=== PATIENT | female | born 1985 | race Caucasian/White ===

== ENCOUNTER 2016-12-04 00:40 | Emergency (ER) | payer MEDICAID | END 2016-12-04 02:05 | disposition home or self-care (01) | LOC: D.ER 00:40 | DX: T14.8 Other injury of unspecified body region (principal); S42.024A Nondisplaced fracture of shaft of right clavicle, initial encounter for closed fracture; W19.XXXA Unspecified fall, initial encounter ==

== ENCOUNTER 2018-08-21 02:02 | Emergency (ER) | payer SELFPAY ==
[~2018-08-21] VITALS: Ht 162.6 cm; Wt 49.5 kg
[2018-08-21 02:07] VITALS: Ht 162.6 cm; Wt 49.5 kg
[2018-08-21] MEDS ORDERED: LAMICTAL200 M1 PO ×2 (02:09→03:11)
[2018-08-21 03:12] LABS: HCG URINE NEGATIVE (NEGATIVE)
[2018-08-21 03:14] LABS: COLOR YELLOW (YELLOW)
[2018-08-21 03:15] LABS: APPEARANCE CLOUDY (CLEAR); BILIRUBIN NEGATIVE (NEGATIVE); GLUCOSE NEGATIVE (NEGATIVE); KETONE NEGATIVE (NEGATIVE); NITRITE POSITIVE (NEGATIVE); PROTEIN 1+ mg/dL (NEGATIVE); UROBILINOGEN NORMAL (NORMAL)
[2018-08-21 03:16] LABS: BACTERIA MANY /hpf (NONE SEEN); EPITHELIAL CELLS 0-5 /hpf (0-5); RED CELLS - URINE 0-5 /hpf (0-5); UDS - AMPHET POSITIVE QUAL (NEGATIVE); UDS - BARB NEGATIVE QUAL (NEGATIVE); UDS - BENZO NEGATIVE QUAL (NEGATIVE); UDS - COCAINE NEGATIVE QUAL (NEGATIVE); UDS - OPIATE NEGATIVE QUAL (NEGATIVE); UDS - PCP NEGATIVE QUAL (NEGATIVE); UDS - THC NEGATIVE QUAL (NEGATIVE)
[2018-08-21] MEDS ORDERED: MACROBID100 MG PO (03:27)
[2018-08-21 03:46] VITALS: BP 126/81
== END 2018-08-21 03:46 | disposition home or self-care (01) ==
LOC: D.ER 02:02
PROVIDERS: Family Medicine
DX: G40.909 Epilepsy, unspecified, not intractable, without status epilepticus (principal); F19.10 Other psychoactive substance abuse, uncomplicated; N39.0 Urinary tract infection, site not specified

== ENCOUNTER 2019-04-09 20:33 | Emergency (ER) | payer SELFPAY ==
[~2019-04-09] VITALS: Ht 162.6 cm; Wt 50.0 kg
[~2019-04-09 20:33] MED LIST: LAMICTAL200 M1 PO; MACROBID100 MG PO
[2019-04-09 21:01] VITALS: Ht 162.6 cm; Wt 50.0 kg
[2019-04-09 22:04] LABS: BASOPHILS 0.1 % (0-2); EOSINOPHILS 0.5 % (0-7); HEMATOCRIT 33.3 % (36.0-48.0); HEMOGLOBIN 10.7 g/dL (12-16); IMMATURE GRANULOCYTES 0.8 % (0-5); LYMPHOCYTES 14.4 % (15-50); MCHC 32.1 g/dL (31.0-37.0); MCV 90.2 fL (80.0-100.0); MEAN PLATELET VOLUME 8.6 fL (7.4-10.4); MONOCYTES 4.5 % (2-11); NEUTROPHILS 79.7 % (40-80); PLATELET COUNT 565 10x3/uL (130-400); RBC 3.69 10x6/uL (4.00-5.40); RDW 13.1 % (11.5-14.5); WBC 13.7 10x3/uL (4.8-10.8)
[2019-04-09 22:15] LABS: ALBUMIN 2.7 g/dL (3.4-5.0); ALKALINE PHOSPHATASE 204 U/L (46-116); ALT (SGPT) 27 U/L (10-68); BILIRUBIN - TOTAL 0.21 mg/dL (0.2-1.3); CALC OSMOLALITY 277 mosm/kg (275-300); CALCIUM 9.4 mg/dL (8.5-10.1); CARBON DIOXIDE 33.6 mmol/L (21.0-32.0); CHLORIDE - SERUM 101 mmol/L (98-107); CREATININE - SERUM 0.7 mg/dL (0.6-1.3); GLUCOSE 84 mg/dL (74-106); POTASSIUM - SERUM 3.7 mmol/L (3.5-5.1); PROTEIN - SERUM 7.5 g/dL (6.4-8.2); SODIUM 141 mmol/L (136-145); UREA NITROGEN 7 mg/dL (7-18); eGFR NON AFRICAN AMERICAN > 90 mL/min (90-120)
[2019-04-09 22:16] LABS: APPEARANCE HAZY (CLEAR); COLOR YELLOW (YELLOW); NITRITE POSITIVE (NEGATIVE); PROTEIN TRACE mg/dL (NEGATIVE)
[2019-04-09 22:17] LABS: BILIRUBIN NEGATIVE (NEGATIVE); GLUCOSE NEGATIVE (NEGATIVE); KETONE NEGATIVE (NEGATIVE); UROBILINOGEN NORMAL (NORMAL)
[2019-04-09 22:18] LABS: BACTERIA MANY /hpf (NEGATIVE); EPITHELIAL CELLS 0-5 /hpf (0-5); MUCUS <1+ /lpf (NONE SEEN); RED CELLS - URINE 0-5 /hpf (0-5)
[2019-04-09 22:19] LABS: HCG URINE NEGATIVE (NEGATIVE)
[2019-04-09 22:22] LABS: AMYLASE - SERUM 32 U/L (25-115); LIPASE 63 U/L (73-393); TROPONIN-I < 0.017 ng/mL (0.000-0.060)
[2019-04-10] MEDS ORDERED: SULFAMETHOXAZOL1 TA2 PO (00:18)
[2019-04-10 00:30] VITALS: BP 146/96
== END 2019-04-10 00:43 | disposition home or self-care (01) ==
LOC: D.ER 20:33
PROVIDERS: Family Medicine
DX: S42.001K Fracture of unspecified part of right clavicle, subsequent encounter for fracture with nonunion (principal); W19.XXXD Unspecified fall, subsequent encounter; N39.0 Urinary tract infection, site not specified

== ENCOUNTER 2019-04-15 22:02 | Emergency (ER) | payer SELFPAY ==
[~2019-04-15] VITALS: Ht 162.6 cm; Wt 51.8 kg
[~2019-04-15 22:02] MED LIST changes: +SULFAMETHOXAZOL1 TA2 PO
[2019-04-15 22:18] VITALS: BP 128/88; Ht 162.6 cm; Wt 51.8 kg
[2019-04-15] MEDS ORDERED: LAMICTAL200 M1 PO (22:42)
== END 2019-04-15 22:50 | disposition home or self-care (01) ==
LOC: D.ER 22:02
DX: Z76.0 Encounter for issue of repeat prescription (principal)

== ENCOUNTER 2019-07-07 09:00 | Emergency (ER) | payer SELFPAY ==
[~2019-07-07] VITALS: Ht 162.6 cm; Wt 50.5 kg
[2019-07-07 09:09] VITALS: Ht 162.6 cm; Wt 50.5 kg
[2019-07-07] MEDS ORDERED: LAMICTAL25 MG PO (10:18)
[2019-07-07 10:24] VITALS: BP 138/82
== END 2019-07-07 10:27 | disposition home or self-care (01) ==
LOC: D.ER 09:00
DX: Z76.0 Encounter for issue of repeat prescription (principal); G40.909 Epilepsy, unspecified, not intractable, without status epilepticus

== ENCOUNTER 2020-04-02 17:56 | Emergency (ER) | payer SELFPAY ==
[~2020-04-02] VITALS: Ht 162.6 cm; Wt 53.6 kg
[~2020-04-02 17:56] MED LIST changes: +LAMICTAL25 MG PO
[2020-04-02 18:14] VITALS: BP 160/129; Ht 162.6 cm; Wt 53.6 kg
== END 2020-04-02 18:50 | disposition left against medical advice (07) ==
LOC: D.ER 17:56
DX: R56.9 Unspecified convulsions (principal)